=== PATIENT | female | born 1975 | race Caucasian/White ===

== ENCOUNTER 2016-05-05 14:23 | Emergency (ER) | payer OTHER ==
--- NOTE | 2016-05-05 16:17 | ED ORDER SUMMARY ---
..... Patient: KAITLYNN BLAIR OrderSheet [facility] VisitID: [id number] [address] [place] [address] 41y, F Registration Date/Time: 05/05/2016 ORDER SHEET Weight: 90.7 kg (stated) Allergies: No Known Drug Allergy GENERAL ORDERS: US OB 1st Trimester w Transvag (9 WEEKS AGO) Urgent (15:05/05/2016 Kp DEVRIES) (Ack 15:28 Edwin) Serum Quantitative Urgent (15:05/05/2016 Kp DEVRIES) (Ack 15:28 Edwin) Type & Rh Urgent (15:05/05/2016 Kp DEVRIES) (Ack 15:28 Edwin) MEDICATION ORDERS: IV FLUIDS: Dilaudid IV 1 mg (HIGH ALERT MEDICATION, NOW) (15:03 05/05/2016 Kp DEVRIES) (Ack 15:07 SStone R.N.) (15:20 SStone R.N.) IV Saline Lock (15:03 05/05/2016 Kp DEVRIES) (Ack 15:07 SStone R.N.) ORDER SHEET NOTES: [Electronically signed by Manasa Mireles R.N. (16:48 05/05/2016)] [Electronically signed by Jessica Hill MD (15:07 05/09/2016)] [Electronically locked/signed by Manasa Mireles R.N. (16:48 05/05/2016)]
--- NOTE | 2016-05-05 16:17 | ED CLINICAL REPORT ---
Clinical Report - Physicians/Mid Levels [facility] [address] [place] [address] 05/05/2016 14:23 Patient: KAITLYNN BLAIR Time Seen: 14:32. Arrived- By private vehicle. Historian- patient. HISTORY OF PRESENT ILLNESS Chief Complaint: VAGINAL BLEEDING. This started several days ago, but heavier today and still present. The symptoms are described as moderate. Modifying factors. Not worsened by anything. Not relieved by anything. The patient has had crampy suprapubic and left-sided pelvic pain. She has had abnormal bleeding. No abdominal pain, vaginal pain, low back pain, flank pain or pain with urination. No urinary frequency or urgency of urination. Currently . Not receiving care. 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 Recent medical care: Not recently seen/assessed. REVIEW OF SYSTEMS No nausea, vomiting, diarrhea, black stools or headache. No fever, chills, anorexia, eye discomfort or sore throat. No cough, difficulty breathing, chest pain, skin rash or enlarged lymph nodes. No joint pain. All systems otherwise negative, except as recorded above. PAST HISTORY Problems: Care. Threatened . OB History. Hypertension. Immunizations. LNMP - Last Normal Menstrual Period. Fibromyalgia. Additional Surgeries: Tonsillectomy. Medications: Tramadol 50 mg bid . Allergies: No Known Drug Allergy. SOCIAL HISTORY Never smoker. Occasional alcohol use. No drug use. ADDITIONAL NOTES The nursing notes have been reviewed. PHYSICAL EXAM Vital Signs: 05/05/2016 14:33 BP: 151/90. HR: 106. RR: 22. O2 saturation: 100%. Temp: 98.2 F. Pain level now: 8/10. Appearance: Alert. Oriented X3. No acute distress. HEENT: Normal external inspection. Neck: Neck supple. CVS: Heart sounds normal. Respiratory: No respiratory distress. Breath sounds normal. Abdomen: Soft. Tenderness (mild, L pelvis). : Moderate vaginal bleeding, consisting of bright red blood, via the cervical os. No clots associated with vaginal bleeding. Cervical os open slightly. Mild left adnexal tenderness. No left adnexal fullness or mass. No cervical motion tenderness. Skin: Skin warm and dry. Normal skin color. No rash. Normal skin turgor. Extremities: Extremities nontender. No lower extremity edema. Neuro: Oriented X 3. Mood/affect normal. No motor deficit. No sensory deficit. LABS, X-RAYS, AND EKG Pelvic Sonogram: Adnexa normal. No free fluid. No intrauterine . Study type: obstetrical evaluation. The study was interpreted by the radiologist and discussed with the radiologist. Prior studies were not available for comparison. Laboratory Tests: Serum Quantitative: (KIMMIE: 05/05/2016 15:15) ( MsgRcvd 05/05/2016 15:46) Final results Test Result Flag Units (Reference) BETA HCG, QUANTITATIVE 482 mIU/mL REFERENCE RANGE:Adult Males: <2 mIU/mLNon- Females: <6 mIU/mL Females:Approximate Approximate hCGGestational Age Range (mIU/mL) 0-1 week 0-501-2 weeks 40-3002-3 weeks 100-79311-6 weeks 500-55820-7 months 5,000-200,0002-3 months 10,000-100,0002nd trimester 3,000-50,0003rd trimester 1,000-50,000 . Pulse Oximetry: 05/05/2016 14:33 O2 saturation: 100%. (FIO2 - room air). Interpretation: normal. PROGRESS AND PROCEDURES Course of Care: PT was worked up with a quant, an US, and a type and Rh. Lab did call to say that pt already had an Rh on file, with was +. US showed no POC in the uterus, and no evidence of an ectopic. Pt was given a dose of Dilaudid for symptomatic relief. I did d/w her that she should consult with an OB, even though this miscarriage appears to be nearly complete, as they may be able to help her carry a successfully the next time. Patient counseled in person regarding the patient's stable condition, test results, diagnosis and need for additional testing and follow-up. Concerns were addressed. Old medical records reviewed. Disposition: Discharged. Condition: stable. CLINICAL IMPRESSION Incomplete spontaneous (miscarriage).No complications. INSTRUCTIONS Drink plenty of fluids. (Your ultrasound does not show any further tissue in your uterus. Your bleeding is likely going to finish up in the next couple of days. You may take naproxen or your Vicodin, if needed for pain. Please consider following up with an alarm adjuster to help troubleshoot your miscarriages.). Warnings: SEDATIVE MEDICATION: You were given sedative medication during your visit. Do not drive or operate dangerous machinery for 6 hours. GENERAL WARNINGS: Return or contact your physician immediately if your condition worsens or changes unexpectedly, if not improving as expected, or if other problems arise. Your Current Medications: CONTINUE TAKING THE FOLLOWING MEDICATIONS: Tramadol 50 mg bid *. Prescription Medications: Naproxen 500 mg: take 1 orally every 12 hours as needed for pain. Dispense twenty (20). No refills. Understanding of the discharge instructions verbalized by patient. Follow-up with: Reynold Welsh MD, Obstetrics/Gynecology, , [facility], [address] [place] [address] Follow up. Call for the next available appointment. Reason for referral: Follow up ER visit and multiple consecutive miscarriages. (Electronically signed by Jessica Hill MD 05/09/2016 15:07)
--- NOTE | 2016-05-05 16:17 | ED ORDER SUMMARY ---
..... Patient: KAITLYNN BLAIR OrderSheet [facility] VisitID: [id number] [address] [place] [address] 41y, F Registration Date/Time: 05/05/2016 ORDER SHEET Weight: 90.7 kg (stated) Allergies: No Known Drug Allergy GENERAL ORDERS: US OB 1st Trimester w Transvag (9 WEEKS AGO) Urgent (15:05/05/2016 Kp DEVRIES) (Ack 15:28 Edwin) Serum Quantitative Urgent (15:05/05/2016 Kp DEVRIES) (Ack 15:28 Edwin) Type & Rh Urgent (15:05/05/2016 Kp DEVRIES) (Ack 15:28 Edwin) MEDICATION ORDERS: IV FLUIDS: Dilaudid IV 1 mg (HIGH ALERT MEDICATION, NOW) (15:03 05/05/2016 Kp DEVRIES) (Ack 15:07 SStone R.N.) (15:20 SStone R.N.) IV Saline Lock (15:03 05/05/2016 Kp DEVRIES) (Ack 15:07 SStone R.N.) ORDER SHEET NOTES: [Electronically signed by Manasa Mireles R.N. (16:48 05/05/2016)] [Electronically signed by Jessica Hill MD (15:07 05/09/2016)] [Electronically locked/signed by Manasa Mireles R.N. (16:48 05/05/2016)]
--- NOTE | 2016-05-05 16:17 | ED CLINICAL REPORT ---
Clinical Report - Physicians/Mid Levels [facility] [address] [place] [address] 05/05/2016 14:23 Patient: KAITLYNN BLAIR Time Seen: 14:32. Arrived- By private vehicle. Historian- patient. HISTORY OF PRESENT ILLNESS Chief Complaint: VAGINAL BLEEDING. This started several days ago, but heavier today and still present. The symptoms are described as moderate. Modifying factors. Not worsened by anything. Not relieved by anything. The patient has had crampy suprapubic and left-sided pelvic pain. She has had abnormal bleeding. No abdominal pain, vaginal pain, low back pain, flank pain or pain with urination. No urinary frequency or urgency of urination. Currently . Not receiving care. 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 Recent medical care: Not recently seen/assessed. REVIEW OF SYSTEMS No nausea, vomiting, diarrhea, black stools or headache. No fever, chills, anorexia, eye discomfort or sore throat. No cough, difficulty breathing, chest pain, skin rash or enlarged lymph nodes. No joint pain. All systems otherwise negative, except as recorded above. PAST HISTORY Problems: Care. Threatened . OB History. Hypertension. Immunizations. LNMP - Last Normal Menstrual Period. Fibromyalgia. Additional Surgeries: Tonsillectomy. Medications: Tramadol 50 mg bid . Allergies: No Known Drug Allergy. SOCIAL HISTORY Never smoker. Occasional alcohol use. No drug use. ADDITIONAL NOTES The nursing notes have been reviewed. PHYSICAL EXAM Vital Signs: 05/05/2016 14:33 BP: 151/90. HR: 106. RR: 22. O2 saturation: 100%. Temp: 98.2 F. Pain level now: 8/10. Appearance: Alert. Oriented X3. No acute distress. HEENT: Normal external inspection. Neck: Neck supple. CVS: Heart sounds normal. Respiratory: No respiratory distress. Breath sounds normal. Abdomen: Soft. Tenderness (mild, L pelvis). : Moderate vaginal bleeding, consisting of bright red blood, via the cervical os. No clots associated with vaginal bleeding. Cervical os open slightly. Mild left adnexal tenderness. No left adnexal fullness or mass. No cervical motion tenderness. Skin: Skin warm and dry. Normal skin color. No rash. Normal skin turgor. Extremities: Extremities nontender. No lower extremity edema. Neuro: Oriented X 3. Mood/affect normal. No motor deficit. No sensory deficit. LABS, X-RAYS, AND EKG Pelvic Sonogram: Adnexa normal. No free fluid. No intrauterine . Study type: obstetrical evaluation. The study was interpreted by the radiologist and discussed with the radiologist. Prior studies were not available for comparison. Laboratory Tests: Serum Quantitative: (KIMMIE: 05/05/2016 15:15) ( MsgRcvd 05/05/2016 15:46) Final results Test Result Flag Units (Reference) BETA HCG, QUANTITATIVE 482 mIU/mL REFERENCE RANGE:Adult Males: <2 mIU/mLNon- Females: <6 mIU/mL Females:Approximate Approximate hCGGestational Age Range (mIU/mL) 0-1 week 0-501-2 weeks 40-3002-3 weeks 100-89713-2 weeks 500-67335-0 months 5,000-200,0002-3 months 10,000-100,0002nd trimester 3,000-50,0003rd trimester 1,000-50,000 . Pulse Oximetry: 05/05/2016 14:33 O2 saturation: 100%. (FIO2 - room air). Interpretation: normal. PROGRESS AND PROCEDURES Course of Care: PT was worked up with a quant, an US, and a type and Rh. Lab did call to say that pt already had an Rh on file, with was +. US showed no POC in the uterus, and no evidence of an ectopic. Pt was given a dose of Dilaudid for symptomatic relief. I did d/w her that she should consult with an OB, even though this miscarriage appears to be nearly complete, as they may be able to help her carry a successfully the next time. Patient counseled in person regarding the patient's stable condition, test results, diagnosis and need for additional testing and follow-up. Concerns were addressed. Old medical records reviewed. Disposition: Discharged. Condition: stable. CLINICAL IMPRESSION Incomplete spontaneous (miscarriage).No complications. INSTRUCTIONS Drink plenty of fluids. (Your ultrasound does not show any further tissue in your uterus. Your bleeding is likely going to finish up in the next couple of days. You may take naproxen or your Vicodin, if needed for pain. Please consider following up with an activities therapist to help troubleshoot your miscarriages.). Warnings: SEDATIVE MEDICATION: You were given sedative medication during your visit. Do not drive or operate dangerous machinery for 6 hours. GENERAL WARNINGS: Return or contact your physician immediately if your condition worsens or changes unexpectedly, if not improving as expected, or if other problems arise. Your Current Medications: CONTINUE TAKING THE FOLLOWING MEDICATIONS: Tramadol 50 mg bid *. Prescription Medications: Naproxen 500 mg: take 1 orally every 12 hours as needed for pain. Dispense twenty (20). No refills. Understanding of the discharge instructions verbalized by patient. Follow-up with: Reynold Welsh MD, Obstetrics/Gynecology, , [facility], [address] [place] [address] Follow up. Call for the next available appointment. Reason for referral: Follow up ER visit and multiple consecutive miscarriages. (Electronically signed by Jessica Hill MD 05/09/2016 15:07)
--- NOTE | 2016-05-05 16:17 | ED NURSING NOTES ---
Clinical Report - Nurses [facility] [place] [address] [place] [address] 05/05/2016 14:23 Patient: KAITLYNN BLAIR TRIAGE Triage time 14:37. Acuity: LEVEL 3. Chief Complaint: ABDOMINAL PAIN and CRAMPS and VAGINAL BLEEDING. --14:45 Manasa Mireles R.N. 14:33 05/05/16. BP: 151/90. HR: 106. RR: 22. O2 saturation: 100%. Temp: 98.2 F. Pain level now: 10/13. --14:45 Manasa Mireles R.N. Weight: 90.7 kg stated. Height/Length: 65 inches Per Patient. BMI: 33.3. --14:42 Manasa Mireles R.N. Medications Tramadol 50 mg bid . --14:40 Manasa Mireles R.N. Allergies No Known Drug Allergy. --14:40 Manasa Mireles R.N. History Arrived by private vehicle. Historian: patient. Primary physician (Maile). ( Pt reports she is 9 weeks , LMP 02/21/2017 has had 6 days of bleeding, cramping. Has passed some clots, but believes she has not passed the majority of tissue yet. States cramping and pain today is unbearable.). ( nausea. diarrhea 2 days ago.). PAST MEDICAL HX: The patient has had care (No OB care yet). ( Hx of multiple miscarriages). SOCIAL HX: Never smoker. Alcohol use; consumes beer occasionally. No infectious disease exposure. --14:45 Manasa Mireles R.N. ( pt reports saturating 2 pads today so far.). --14:46 Manasa Mireles R.N. Interventions ID band on patient. To treatment room. --14:45 Manasa Mireles R.N. PHYSICAL ASSESSMENT GENERAL / NEURO / PSYCH: Oriented X 4. Appears in no acute distress. RESPIRATORY: Respirations not labored. CVS: Normal heart rate and rhythm. GI / : Vaginal bleeding present. EXTREMITIES: No lower extremity edema. SKIN: Skin is warm and dry. --14:46 Manasa Mireles R.N. NURSING PROGRESS NOTES Patient gowned. Reassurance given. Call light placed in reach. Bed placed in lowest position. Patient waiting for evaluation. --14:45 Manasa Mireles R.N. 15:19 05/05/2016 Site #1 started via IV in the right antecubital space with an 20g angiocath. Blood drawn: rainbow set. Labeled in the presence of the patient and sent to the lab. Saline lock flushed with 10 mL saline. --15:19 Manasa Mireles R.N. 15:20 05/05/2016 Dilaudid (HYDROmorphone HCl PF) IVP 1 mg given over 2 minute(s) via site #1. --15:20 Manasa Mireles R.N. ( pt reports pain went from 8-9/10 before pain medication down to a 3-4/10 and much more tolerable. Awaiting MD agustin.). --15:21 Manasa Mireles R.N. ( pt on continuous O2 sat monitor after Dilaudid). --15:21 Manasa Mireles R.N. PELVIC EXAM: Pelvic exam performed by ED physician. Assisted by one nurse. Procedure: speculum exam. Bloody vaginal discharge noted. Light amount of vaginal bleeding noted. Status post-procedure: she was stable. Total time of assist / procedure: (5). --16:04 Manasa Mireles R.N. DISPOSITION / DISCHARGE Departure time: 16:34 May 05 2016. Condition at departure: improved. No learning barriers present. Discharge instructions provided and reviewed with the patient. Reviewed warnings. Reviewed medication(s). Treatments reviewed. Reviewed referrals. Patient verbalized understanding. Written instructions provided in Guyanese. The patient was discharged home and accompanied by property administrator. She left the Emergency Department ambulatory and via private vehicle. Spouse driving. --16:34 Eileen Vázquez R.N. 16:31 05/05/16. BP: 128/81. HR: 90. RR: 18. O2 saturation: 99%. Temp: 98.4 F. Pain level now 0/10. --16:34 Eileen Vázquez R.N. 16:25 05/05/2016 Site #1 removed upon discharge. Catheter intact. Pressure dressing applied. --16:35 Eileen Vázquez R.N. Locked/Released at 05/05/2016 16:48 by Manasa Mireles R.N.
--- NOTE | 2016-05-05 16:17 | ED NURSING NOTES ---
Clinical Report - Nurses [facility] [place] [address] [address] [place] [address] 05/05/2016 14:23 Patient: KAITLYNN BLAIR TRIAGE Triage time 14:37. Acuity: LEVEL 3. Chief Complaint: ABDOMINAL PAIN and CRAMPS and VAGINAL BLEEDING. --14:45 Manasa Mireles R.N. 14:33 05/05/16. BP: 151/90. HR: 106. RR: 22. O2 saturation: 100%. Temp: 98.2 F. Pain level now: 10/13. --14:45 Manasa Mireles R.N. Weight: 90.7 kg stated. Height/Length: 65 inches Per Patient. BMI: 33.3. --14:42 Manasa Mireles R.N. Medications Tramadol 50 mg bid . --14:40 Manasa Mireles R.N. Allergies No Known Drug Allergy. --14:40 Manasa Mireles R.N. History Arrived by private vehicle. Historian: patient. Primary physician (Maile). ( Pt reports she is 9 weeks , LMP 02/21/2017 has had 6 days of bleeding, cramping. Has passed some clots, but believes she has not passed the majority of tissue yet. States cramping and pain today is unbearable.). ( nausea. diarrhea 2 days ago.). PAST MEDICAL HX: The patient has had care (No OB care yet). ( Hx of multiple miscarriages). SOCIAL HX: Never smoker. Alcohol use; consumes beer occasionally. No infectious disease exposure. --14:45 Manasa Mireles R.N. ( pt reports saturating 2 pads today so far.). --14:46 Manasa Mireles R.N. Interventions ID band on patient. To treatment room. --14:45 Manasa Mireles R.N. PHYSICAL ASSESSMENT GENERAL / NEURO / PSYCH: Oriented X 4. Appears in no acute distress. RESPIRATORY: Respirations not labored. CVS: Normal heart rate and rhythm. GI / : Vaginal bleeding present. EXTREMITIES: No lower extremity edema. SKIN: Skin is warm and dry. --14:46 Manasa Mireles R.N. NURSING PROGRESS NOTES Patient gowned. Reassurance given. Call light placed in reach. Bed placed in lowest position. Patient waiting for evaluation. --14:45 Manasa Mireles R.N. 15:19 05/05/2016 Site #1 started via IV in the right antecubital space with an 20g angiocath. Blood drawn: rainbow set. Labeled in the presence of the patient and sent to the lab. Saline lock flushed with 10 mL saline. --15:19 Manasa Mireles R.N. 15:20 05/05/2016 Dilaudid (HYDROmorphone HCl PF) IVP 1 mg given over 2 minute(s) via site #1. --15:20 Manasa Mireles R.N. ( pt reports pain went from 8-9/10 before pain medication down to a 3-4/10 and much more tolerable. Awaiting MD agustin.). --15:21 Manasa Mireles R.N. ( pt on continuous O2 sat monitor after Dilaudid). --15:21 Manasa Mireles R.N. PELVIC EXAM: Pelvic exam performed by ED physician. Assisted by one nurse. Procedure: speculum exam. Bloody vaginal discharge noted. Light amount of vaginal bleeding noted. Status post-procedure: she was stable. Total time of assist / procedure: (5). --16:04 Manasa Mireles R.N. DISPOSITION / DISCHARGE Departure time: 16:34 May 05 2016. Condition at departure: improved. No learning barriers present. Discharge instructions provided and reviewed with the patient. Reviewed warnings. Reviewed medication(s). Treatments reviewed. Reviewed referrals. Patient verbalized understanding. Written instructions provided in Turkmen. The patient was discharged home and accompanied by window glass cutter off. She left the Emergency Department ambulatory and via private vehicle. Spouse driving. --16:34 Eileen Vázquez R.N. 16:31 05/05/16. BP: 128/81. HR: 90. RR: 18. O2 saturation: 99%. Temp: 98.4 F. Pain level now 0/10. --16:34 Eileen Vázquez R.N. 16:25 05/05/2016 Site #1 removed upon discharge. Catheter intact. Pressure dressing applied. --16:35 Eileen Vázquez R.N. Locked/Released at 05/05/2016 16:48 by Manasa Mireles R.N.
--- NOTE | 2016-05-05 17:00 | DIAGNOSTIC IMAGING REPORT ---
PROCEDURE: US OB 1ST TRIMESTER W/TRANSVAG INDICATION: POSSIBLE ECTOPIC TECHNIQUE: Alejandro scale, color, and spectral Doppler transabdominal sonographic images of the first trimester gravid uterus were obtained. COMPARISON: None. FINDINGS: TRANSABDOMINAL SCANS: No viable fetus. Small amount of retained products with a vascular endometrium. Normal appearing ovaries with good blood flow to both ovaries. No free fluid seen. IMPRESSION: 1. No viable fetus. Retained products and vascular endometrium.
--- NOTE | 2016-05-09 15:07 | ED MED RECONCILIATION SUMMARY ---
Patient: KAITLYNN BLAIR Medication Reconciliation Report [facility] VisitID: [id number] [address] [place] [address] 41y, F Registration Date/Time: 05/05/2016 Weight: 90.7 kg Height/Length: 65 in. BMI: 33.3 ALLERGIES: No Known Drug Allergy The patient's Home Medications are listed below: CONTINUE TAKING THE FOLLOWING MEDICATIONS: Tramadol 50 mg bid The source(s) of the original Home Medication information: Not obtained. The following Medications were given to the patient in the Emergency Department: Dilaudid [IVP] IVP 1 mg, administered: 05/05/2016 3:20:00 PM The following Medications were prescribed to the patient: Naproxen 500 mg: take 1 orally every 12 hours as needed for pain. Dispense twenty (20). No refills. -- Jessica Hill MD
--- NOTE | 2016-05-09 15:07 | ED DISCHARGE INSTRUCTIONS ---
Patient: KAITLYNN BLAIR General Instructions [facility] VisitID: [id number] [address] [place] [address] 41y, F Registration Date/Time: 05/05/2016 Incomplete spontaneous (miscarriage).No complications. INSTRUCTIONS Drink plenty of fluids. (Your ultrasound does not show any further tissue in your uterus. Your bleeding is likely going to finish up in the next couple of days. You may take naproxen or your Vicodin, if needed for pain. Please consider following up with an casino enforcement agent to help troubleshoot your miscarriages.). Warnings: SEDATIVE MEDICATION: You were given sedative medication during your visit. Do not drive or operate dangerous machinery for 6 hours. GENERAL WARNINGS: Return or contact your physician immediately if your condition worsens or changes unexpectedly, if not improving as expected, or if other problems arise. Your Current Medications: CONTINUE TAKING THE FOLLOWING MEDICATIONS: Tramadol 50 mg bid *. Prescription Medications: Naproxen 500 mg: take 1 orally every 12 hours as needed for pain. Dispense twenty (20). No refills. Understanding of the discharge instructions verbalized by patient. Follow-up with: Reynold Welsh MD, Obstetrics/Gynecology, , [facility], [address] [place] [address] Follow up. Call for the next available appointment. Reason for referral: Follow up ER visit and multiple consecutive miscarriages. ADDITIONAL INFORMATION Miscarriage, Spontaneous (Completed) Todays exam shows that your has ended suddenly. While this may be an emotionally difficult time for you, know that it is not an uncommon event. A miscarriage can be due to various causes. These include a problem with the babys chromosomes (genes that carry the information needed for life) or with fertilization or implantation that didnt happen correctly. In most cases no cause can be found. Be assured that this miscarriage was not the result of anything that you did wrong, and it will not interfere with your ability to become in the future. It appears that your miscarriage is complete and all tissue from the has passed. If there are parts of the tissue that remain in the uterus, you will probably have more cramping and bleeding. Home Care: You may resume normal activities if you are not having heavy bleeding or pain. Until the bleeding stops completely and to prevent infection: Do not have sexual intercourse for as long as your healthcare provider tells you. Use sanitary pads instead of tampons. Do not douche. If you feel sadness or grief, it may help to talk about your feelings with family and friends, or with a counselor. Follow Up: Make an appointment to see your doctor in the next one to two weeks for a checkup. If cramping and bleeding return and continue for more than a few days, call your doctor or return here for an exam. The doctor may need to remove remaining tissue from the uterus to stop the bleeding and prevent infection. Or, you may be prescribed medication to take at home to help your body expel the remaining tissue. Note: If you had an ultrasound it will be reviewed by a specialist. You will be notified of any new findings that may affect your care. Get Prompt Medical Attention if any of the following occur: Heavy bleeding (soaking one new pad an hour over three hours) Bleeding that does not stop after ten days Foul-smelling vaginal discharge Fever of 100.4F (38C) or higher, or as directed by your healthcare provider Increasing lower abdominal pain Weakness, dizziness, or fainting You have been given the following additional information: Miscarriage, Spontaneous (Completed) (Electronically signed by Jessica Hill MD 05/09/2016 15:07)
--- NOTE | 2016-05-09 15:07 | ED MED RECONCILIATION SUMMARY ---
Patient: KAITLYNN BLAIR Medication Reconciliation Report [facility] VisitID: [id number] [address] [place] [address] 41y, F Registration Date/Time: 05/05/2016 Weight: 90.7 kg Height/Length: 65 in. BMI: 33.3 ALLERGIES: No Known Drug Allergy The patient's Home Medications are listed below: CONTINUE TAKING THE FOLLOWING MEDICATIONS: Tramadol 50 mg bid The source(s) of the original Home Medication information: Not obtained. The following Medications were given to the patient in the Emergency Department: Dilaudid [IVP] IVP 1 mg, administered: 05/05/2016 3:20:00 PM The following Medications were prescribed to the patient: Naproxen 500 mg: take 1 orally every 12 hours as needed for pain. Dispense twenty (20). No refills. -- Jessica Hill MD
--- NOTE | 2016-05-09 15:07 | ED MAR SUMMARY ---
..... Medication Administration Record [facility] [address] [place] [address] Patient: KAITLYNN BLAIR Visit ID: [id number] 41y, F Weight: 90.7 kg Height/Length: 65 in BMI: 33.3 ALLERGIES: No Known Drug Allergy Given 15:20 05/05/2016 Manasa Mireles R.N. Medication Administered: DILAUDID [IVP] (HYDROMORPHONE HCL PF), Dose: 1 mg IVP over 2 minute(s), Site: #1 right AC. Medication Ordered: Dilaudid IV 1 mg (HIGH ALERT MEDICATION, NOW).
--- NOTE | 2016-05-09 15:07 | ED MAR SUMMARY ---
..... Medication Administration Record [facility] [address] [place] [address] Patient: KAITLYNN BLAIR Visit ID: [id number] 41y, F Weight: 90.7 kg Height/Length: 65 in BMI: 33.3 ALLERGIES: No Known Drug Allergy Given 15:20 05/05/2016 Manasa Mireles R.N. Medication Administered: DILAUDID [IVP] (HYDROMORPHONE HCL PF), Dose: 1 mg IVP over 2 minute(s), Site: #1 right AC. Medication Ordered: Dilaudid IV 1 mg (HIGH ALERT MEDICATION, NOW).
--- NOTE | 2016-05-09 15:07 | ED DISCHARGE INSTRUCTIONS ---
Patient: KAITLYNN BLAIR General Instructions [facility] VisitID: [id number] [address] [place] [address] 41y, F Registration Date/Time: 05/05/2016 Incomplete spontaneous (miscarriage).No complications. INSTRUCTIONS Drink plenty of fluids. (Your ultrasound does not show any further tissue in your uterus. Your bleeding is likely going to finish up in the next couple of days. You may take naproxen or your Vicodin, if needed for pain. Please consider following up with an bariatric surgeon to help troubleshoot your miscarriages.). Warnings: SEDATIVE MEDICATION: You were given sedative medication during your visit. Do not drive or operate dangerous machinery for 6 hours. GENERAL WARNINGS: Return or contact your physician immediately if your condition worsens or changes unexpectedly, if not improving as expected, or if other problems arise. Your Current Medications: CONTINUE TAKING THE FOLLOWING MEDICATIONS: Tramadol 50 mg bid *. Prescription Medications: Naproxen 500 mg: take 1 orally every 12 hours as needed for pain. Dispense twenty (20). No refills. Understanding of the discharge instructions verbalized by patient. Follow-up with: Reynold Welsh MD, Obstetrics/Gynecology, , [facility], [address] [place] [address] Follow up. Call for the next available appointment. Reason for referral: Follow up ER visit and multiple consecutive miscarriages. ADDITIONAL INFORMATION Miscarriage, Spontaneous (Completed) Todays exam shows that your has ended suddenly. While this may be an emotionally difficult time for you, know that it is not an uncommon event. A miscarriage can be due to various causes. These include a problem with the babys chromosomes (genes that carry the information needed for life) or with fertilization or implantation that didnt happen correctly. In most cases no cause can be found. Be assured that this miscarriage was not the result of anything that you did wrong, and it will not interfere with your ability to become in the future. It appears that your miscarriage is complete and all tissue from the has passed. If there are parts of the tissue that remain in the uterus, you will probably have more cramping and bleeding. Home Care: You may resume normal activities if you are not having heavy bleeding or pain. Until the bleeding stops completely and to prevent infection: Do not have sexual intercourse for as long as your healthcare provider tells you. Use sanitary pads instead of tampons. Do not douche. If you feel sadness or grief, it may help to talk about your feelings with family and friends, or with a counselor. Follow Up: Make an appointment to see your doctor in the next one to two weeks for a checkup. If cramping and bleeding return and continue for more than a few days, call your doctor or return here for an exam. The doctor may need to remove remaining tissue from the uterus to stop the bleeding and prevent infection. Or, you may be prescribed medication to take at home to help your body expel the remaining tissue. Note: If you had an ultrasound it will be reviewed by a specialist. You will be notified of any new findings that may affect your care. Get Prompt Medical Attention if any of the following occur: Heavy bleeding (soaking one new pad an hour over three hours) Bleeding that does not stop after ten days Foul-smelling vaginal discharge Fever of 100.4F (38C) or higher, or as directed by your healthcare provider Increasing lower abdominal pain Weakness, dizziness, or fainting You have been given the following additional information: Miscarriage, Spontaneous (Completed) (Electronically signed by Jessica Hill MD 05/09/2016 15:07)
== END 2016-05-05 16:30 | disposition home or self-care (01) ==
LOC: ED SRH 14:23
DX: O03.4 Incomplete spontaneous abortion without complication (principal); Z79.891 Long term (current) use of opiate analgesic
CPT/HCPCS: 90197